=== PATIENT | male | born 1965 | race Two or more races ===

== ENCOUNTER 2017-02-14 17:57 | Emergency (ER) | payer MEDICAID, OTHER ==
[~2017-02-14] VITALS: Ht 170.2 cm; Wt 128.8 kg
[2017-02-14 18:10] VITALS: BP 139/92
--- NOTE | 2017-02-14 18:29 | PHYS DOC ---
Adult General Chief Complaint Chief Complaint: ALLERGIC REACTION [facility] HPI Patient is a 51 year old L presents to the emergency department with complaints of a wasp sting 3 hours prior to arrival. He has no complaints upon arrival. He states initially after this stating he became very anxious and was sweating. He states that he had no shortness of breath, no cough, no chest pain. States he took a shower and that made him feel better. No Complaints upon arrival to the ER. Review of Systems Review of Systems Constitutional: Denies fever or chills [] Eyes: Denies change in visual acuity, redness, or eye pain [] HENT: Denies nasal congestion or sore throat [] Respiratory: Denies cough or shortness of breath [] Cardiovascular: No additional information not addressed in HPI [] GI: Denies abdominal pain, nausea, vomiting, bloody stools or diarrhea [] : Denies dysuria or hematuria [] Musculoskeletal: Denies back pain or joint pain [] Integument: Wasp sting Neurologic: Denies headache, focal weakness or sensory changes [] Endocrine: Denies polyuria or polydipsia [] Allergies Allergies Allergies Coded Allergies Type Severity Reaction Last Updated Verified No Known Drug Allergies 02/14/17 No Physical Exam Physical Exam Constitutional: Well developed, well nourished, no acute distress, non-toxic appearance. [] HENT: Normocephalic, atraumatic, bilateral external ears normal, oropharynx moist, no oral exudates, nose normal. [] Eyes: PERRLA, EOMI, conjunctiva normal, no discharge. [] Neck: Normal range of motion, no tenderness, supple, no stridor. [] Cardiovascular:Heart rate regular rhythm, no murmur [] Lungs & Thorax: Bilateral breath sounds clear to auscultation [] Abdomen: Bowel sounds normal, soft, no tenderness, no masses, no pulsatile masses. [] Skin: Warm, dry, no erythema, no rash. Left lateral abdominal wall, area of concern for staying, is without swelling, without erythema, without tenderness or induration. [] Back: No tenderness, no CVA tenderness. [] Extremities: No tenderness, no cyanosis, no clubbing, ROM intact, no edema. [] Neurologic: Alert and oriented X 3, normal motor function, normal sensory function, no focal deficits noted. [] Psychologic: Affect normal, judgement normal, mood normal. [] EKG EKG [] Radiology/Procedures Radiology/Procedures [] Course & Med Decision Making Course & Med Decision Making Pertinent Labs and Imaging studies reviewed. (See chart for details) [] Dragon Disclaimer Dragon Disclaimer This electronic medical record was generated, in whole or in part, using a voice recognition dictation system. Departure Departure Impression: Primary Impression: Insect sting Disposition: HOME, SELF-CARE Condition: STABLE Referrals: UNKNOWN PCP NAME (PCP) [facility] [place] Patient Instructions: Insect Sting Allergy Problem Qualifiers Primary Impression: Insect sting Encounter type: initial encounter Injury intent: accidental or unintentional Qualified Codes: T63.481A - Toxic effect of venom of other arthropod, accidental (unintentional), initial encounter [employer] Feb 14, 2017 18:29
== END 2017-02-14 18:42 | disposition home or self-care (01) ==
LOC: ER 17:57
DX: T63.461A Toxic effect of venom of wasps, accidental (unintentional), initial encounter (principal); R61 Generalized hyperhidrosis; F41.9 Anxiety disorder, unspecified; Y92.89 Other specified places as the place of occurrence of the external cause
CPT/HCPCS: 99281

== ENCOUNTER 2017-05-31 12:22 | Emergency (ER) | payer MEDICAID | END 2017-05-31 14:53 | disposition home or self-care (01) | LOC: ER 12:22 | DX: M25.572 Pain in left ankle and joints of left foot (principal); I10 Essential (primary) hypertension; F12.10 Cannabis abuse, uncomplicated | CPT/HCPCS: 29515; 73610; 99284-25 ==